=== PATIENT | male | born 1965 | race Caucasian/White ===

== ENCOUNTER 2024-04-15 06:22 | Day surgery (SDC) | payer BC ==
[2024-04-15] MEDS: Ringers Lactate 1,000 ML IV ONE (07:12)
[2024-04-15] MEDS ORDERED: LIDOCAINE 1% MPF 5 ML VIAL ONE (07:19)
[2024-04-15] MEDS ORDERED: propofoL 200 MG/20 ML VIAL IV ONE (07:19)
[2024-04-15 10:02] VITALS: O2SAT 95
--- NOTE | 2024-04-15 11:13 | RAD REPORT ---
PROCEDURE: ULTRASOUND GUIDED PARACENTESIS CLINICAL INDICATION: ASCITES PROCEDURE DETAILS: Consent: Informed consent for the procedure including risks, benefits and alternatives was obtained a nd time-out was performed prior to the procedure. Preparation: The site was prepared and draped using maximal sterile barrier technique including cutan eous antisepsis. Procedure: Initial limited abdominal ultrasound was performed and a large amount of ascites was seen. A safe window for paracentesis was identified with ultrasound to june a suitable access site. Local anesthesia was administered. The peritoneal cavity was accessed, and fluid return confirmed pos ition. A 8F pigtail drainage catheter was placed and ascites was drained. The catheter was removed, and a sterile bandage was applied. Following the procedure, albumin was administered per protocol. IMPRESSION: Ultrasound guided paracentesis, yielding 6000 mL of yellow fluid. PLAN: Aspirated fluid was sent for analysis.
[2024-04-15] MEDS: ALBUMIN HUMAN 25% 200 ML IV ONE (12:24)
[2024-04-15 13:14] VITALS: BMI 43.3
[2024-04-15 13:17] VITALS: BP 121/61; TEMP 98
[2024-04-15 13:39] LABS: Appearance CLEAR (CLEAR); Body Fluid Source PERITONEAL; Color of fluid Yellow (COLORLESS); Tube # SINGLE
[2024-04-15 13:40] LABS: Body Fluid WBC 85 /mm^3
[2024-04-15 14:24] LABS: Body Fluid Lymphocytes 76 %; Fluid Total Cells Count 100
== END 2024-04-15 12:20 | disposition home or self-care (01) ==
LOC: OR 06:22
PROVIDERS: ATTEND Internal Medicine Gastroenterology
PROC: 0DJD8ZZ Inspection of Lower Intestinal Tract, Via Natural or Artificial Opening Endoscopic (ICD-10-PCS; principal; 2024-04-15 07:30)
PROC: 0DB68ZX Excision of Stomach, Via Natural or Artificial Opening Endoscopic, Diagnostic (ICD-10-PCS; 2024-04-15 07:30)
DX: R19.4 Change in bowel habit (principal); R10.33 Periumbilical pain; R11.0 Nausea; K64.8 Other hemorrhoids; K64.4 Residual hemorrhoidal skin tags; R10.13 Epigastric pain; R14.0 Abdominal distension (gaseous); R14.2 Eructation; K30 Functional dyspepsia; I85.00 Esophageal varices without bleeding; K29.80 Duodenitis without bleeding; K29.40 Chronic atrophic gastritis without bleeding
CPT/HCPCS: 87070; 36415; 82150; 89050; 88312; 84157; 88305; 82042; 96365; 49083; 45378; 43239; P9047; J2704; J2003; J7120

== ENCOUNTER 2024-04-22 08:44 | Day surgery (SDC) | payer BC ==
[2024-04-22] MEDS: Ringers Lactate 1,000 ML IV ONE (09:28)
[2024-04-22] MEDS ORDERED: propofoL 200 MG/20 ML VIAL IV ONE (09:36)
[2024-04-22] MEDS ORDERED: LIDOCAINE 1% MPF 5 ML VIAL ONE (09:36)
[2024-04-22 12:23] VITALS: BP 122/60; TEMP 97.6; O2SAT 96
== END 2024-04-22 11:51 | disposition home or self-care (01) ==
LOC: OR 08:44
PROVIDERS: ATTEND Internal Medicine Gastroenterology
PROC: 06L38CZ Occlusion of Esophageal Vein with Extraluminal Device, Via Natural or Artificial Opening Endoscopic (ICD-10-PCS; principal; 2024-04-22 10:00)
DX: I85.00 Esophageal varices without bleeding (principal); R10.13 Epigastric pain; K29.30 Chronic superficial gastritis without bleeding; K29.80 Duodenitis without bleeding
CPT/HCPCS: 43244; J2704; J2003; J7120

== ENCOUNTER 2024-04-24 07:26 | Day surgery (SDC) | payer BC ==
[2024-04-24 08:49] LABS: PT Prothrombin Time 19.3 SECONDS (9.4-12.5); PTT, Activated Partial Thromb 40.2 SECONDS (24.3-36.9); Protime INR 1.85
[2024-04-24 08:59] LABS: Anion Gap 9.5 mEq/L (5.0-15.0); Potassium 4.5 mEq/L (3.5-5.1)
[2024-04-24] MEDS: ALBUMIN HUMAN 25% 300 ML IV ONE (10:45)
[2024-04-24 12:39] LABS: Appearance CLEAR (CLEAR); Body Fluid Source PERITONEAL; Color of fluid Yellow (COLORLESS)
[2024-04-24 12:40] LABS: Body Fluid WBC 162 /mm^3
[2024-04-24 13:03] LABS: Body Fluid Lymphocytes 79 %; Fluid Total Cells Count 100
[2024-04-24 13:49] VITALS: BMI 39.3
--- NOTE | 2024-04-24 14:21 | RAD REPORT ---
PROCEDURE: ULTRASOUND GUIDED PARACENTESIS CLINICAL INDICATION: [facility] ASCITES PROCEDURE DETAILS: Consent: Informed consent for the procedure including risks, benefits and alternatives was obtained a nd time-out was performed prior to the procedure. Preparation: The site was prepared and draped using maximal sterile barrier technique including cutan eous antisepsis. No moderate sedation administered. Procedure: Initial limited abdominal ultrasound was performed and a large amount of ascites was seen. A safe window for paracentesis was identified with ultrasound to june a suitable access site. Local anesthesia was administered. The peritoneal cavity was accessed, and fluid return confirmed pos ition. A 6F catheter was placed and clear straw-colored ascites was drained. The catheter was removed, and a sterile bandage was applied. Following the procedure, albumin was administered per pro tocol. IMPRESSION: Successful ultrasound-guided diagnostic and therapeutic paracentesis. PLAN: Aspirated fluid was sent for analysis.
[2024-04-24 14:24] VITALS: BP 112/51; TEMP 97.1; O2SAT 97
== END 2024-04-24 12:02 | disposition home or self-care (01) ==
LOC: DS 07:26
PROVIDERS: ATTEND Internal Medicine Gastroenterology
DX: R18.8 Other ascites (principal)
CPT/HCPCS: 87070; 80048; 36415; 82150; 89050; 84157; 85610; 85730; 82042; 96365; 49083; 96366; P9047

== ENCOUNTER 2024-05-13 07:42 | Day surgery (SDC) | payer BC ==
[2024-05-13 08:44] VITALS: BP 105/51; TEMP 97.4; O2SAT 100; BMI 34.1
[2024-05-13] MEDS: ALBUMIN HUMAN 25% 300 ML IV ONE (10:29)
[2024-05-13 12:37] LABS: Appearance CLEAR (CLEAR); Body Fluid Source PERITONEAL; Color of fluid Yellow (COLORLESS)
[2024-05-13 12:38] LABS: Body Fluid Lymphocytes 92 %; Body Fluid WBC 192 /mm^3; Fluid Total Cells Count 100
--- NOTE | 2024-05-13 13:10 | RAD REPORT ---
PROCEDURE: ULTRASOUND GUIDED PARACENTESIS CLINICAL INDICATION: [facility] ASCITES PROCEDURE DETAILS: Consent: Informed consent for the procedure including risks, benefits and alternatives was obtained a nd time-out was performed prior to the procedure. Preparation: The site was prepared and draped using maximal sterile barrier technique including cutan eous antisepsis. Procedure: Initial limited abdominal ultrasound was performed and a large amount of ascites was seen. A safe window for paracentesis was identified with ultrasound to june a suitable access site. Local anesthesia was administered. The peritoneal cavity was accessed, and fluid return confirmed pos ition. A 5F Yueh catheter was placed and clear straw-colored ascites was drained. A total of 3.8 L of ascites were drained. The catheter was removed, and a sterile bandage was applied. Following the p rocedure, albumin was administered per protocol. IMPRESSION: Successful ultrasound-guided diagnostic and therapeutic paracentesis. PLAN: Aspirated fluid was sent for analysis.
== END 2024-05-13 11:30 | disposition home or self-care (01) ==
LOC: DS 07:42
PROVIDERS: ATTEND Internal Medicine Gastroenterology
DX: R18.8 Other ascites (principal); R11.0 Nausea; R14.0 Abdominal distension (gaseous)
CPT/HCPCS: 87070; 36415; 82150; 89050; 84157; 82042; 96365; 49083; 96366; P9047